=== PATIENT | female | born 1985 | race Hispanic/Latino ===

== ENCOUNTER 2020-09-05 23:00 | Observation (INO) | payer BC, OTHER, SELFPAY ==
[2020-09-06] MEDS ORDERED: CEFOXITIN SODIUM 1 GM/VIAL IVPB SCH (00:28)
[2020-09-06 00:37] VITALS: BMI 51.2
[2020-09-06] MEDS ORDERED: CEFOXITIN SODIUM 1 GM/VIAL ONE (01:05)
[2020-09-06] MEDS ORDERED: CEFOXITIN/SWI 1gm 1 GM/10 ML SYR ONE (01:05)
[2020-09-06] MEDS: Ringers Lactate 1,000 ML IV SCH ×3 (01:23→23:29)
[2020-09-06] MEDS: METRONIDAZOLE 500mg IVPB 500 MG/100 ML BAG IV SCH ×3 (01:27→17:01)
[2020-09-06] MEDS: CEFOXITIN/SWI 1gm 1 GM/10 ML SYR IVP SCH ×5 (01:27→23:29)
[2020-09-06] MEDS: ONDANSETRON 4 MG/2 ML VIAL IV PRN (01:28)
[2020-09-06] MEDS: HYDROMORPHONE HCL 1 MG/ML INJ IV PRN ×5 (01:29→21:10)
[2020-09-06] MEDS ORDERED: Ringers Lactate 1,000 ML IV ONE (07:31)
[2020-09-06] MEDS ORDERED: propofoL 200 MG/20 ML VIAL IV ONE (07:42)
[2020-09-06] MEDS ORDERED: FENTANYL CITR 100 MCG/2 ML ONE (07:42)
[2020-09-06] MEDS ORDERED: ROCURONIUM 50 MG/5 ML VIAL IV ONE (07:43)
[2020-09-06] MEDS ORDERED: LIDOCAINE 2% MPF 5 ML VIAL ONE (07:43)
[2020-09-06] MEDS ORDERED: GLYCOPYRROLATE 0.2 MG/ML SYR ONE (07:43)
[2020-09-06] MEDS ORDERED: dexAMETHasone 10 MG/ML VIAL ONE (08:05)
[2020-09-06] MEDS ORDERED: KETOROLAC 30 MG/ML INJ ONE (08:05)
[2020-09-06] MEDS ORDERED: ONDANSETRON 4 MG/2 ML VIAL ONE (08:05)
--- NOTE | 2020-09-06 08:18 | PREOPHP ---
Date of Admission: 09/06/2020 Chief Complaint: Abdominal pain. History Of Present Illness: The patient is a 35-year-old female, who had an acute onset of diffuse a bdominal pain localizing to the right lower quadrant associated with nausea, vomiting, and anorexia. No diarrhea or constipation. No blood in her stool. No dysuria or hematuria. No sore throat, runn y nose, cough, headaches, or dizziness. No chest pain. No fever or chills. She went to [facility]. She had a workup done there. She had acute appendicitis, I was notified and she was transferred here, a dmitted, started on IV antibiotics and she requires surgical intervention. Review of Systems: Otherwise unremarkable. Past Medical History: Negative. Past Surgical History: Negative. Allergies: NO ALLERGIES. Social History: Denies smoking or drinking use. Family History: Significant for heart disease. Physical Examination: Vital Signs: Stable, afebrile. General: Awake, alert, and oriented x3. Head and Neck: Cranial nerves 2 through 12 are grossly within normal limits. No neck masses. No JV D. Throat clear. Neck: Supple. Chest: Clear. Heart: S1, S2. Abdomen: Soft, nondistended. Positive bowel sounds. Positive Rovsing sign. Positive right lower q uadrant tenderness with rebound. No rigidity or guarding. Extremities: Adequately perfused. Nontender. Neuro: Nonfocal. Laboratory Data: CT scan reviewed. There is some acute appendicitis with enlarged lymph nodes and n o other significant findings of fatty liver. White count is 13,000. Assessment: Acute appendicitis. Plan: Admit, n.p.o., IV fluid, IV antibiotic, to the OR for laparoscopic appendectomy possible open. Patient understands the risks, benefits, and alternatives and agrees to procedure. /MODL Voice ID: [id number]
--- NOTE | 2020-09-06 08:32 | P.OP ---
Barista: Michael HUFF Preoperative diagnosis: Acute Appendicitis Postoperative diagnosis: same Primary procedure: Lap Appy Anesthesia: General Estimated blood loss: min Specimen: Appy Findings: as above Complications: None Transferred to: Recovery Room Condition: Good
[2020-09-06] MEDS ORDERED: NEOSTIGMINE 1 MG/ML -5 ML ONE (08:50)
--- NOTE | 2020-09-06 09:03 | OP ---
Date of Procedure: 09/06/2020 Surgeon: Neeraj Johns MD Plate Filler: DARIA Rivera. Preoperative Diagnosis: Acute appendicitis. Postoperative Diagnosis: Acute appendicitis with acute suppurative appendicitis. Procedure Performed: Laparoscopic appendectomy. Estimated Blood Loss: Minimal. Specimen: Appendix. Findings: As above. Anesthesia: General. Complications: None. The patient tolerated the procedure in stable condition, taken to Recovery in good general condition. Procedure In Detail: Patient was brought to the OR and placed in supine position and general anesthe bouchra begun. The patient was prepped and draped in the usual sterile fashion. Marcaine 0.5% was infilt rated locally. A 15-blade was used to make a 1 cm supraumbilical midline incision. Subcutaneous tis marleen was divided. Fascia was identified and divided. #1 Vicryl stay suture was placed. Peritoneal c avity was entered with sharp and blunt dissection. 12-mm trocar was placed into the peritoneal cavit y under direct vision. Pneumoperitoneum was established and then two 5-mm trocars were placed one in the suprapubic region and one in the left lower quadrant. Laparoscopy revealed acute suppurative ap pendicitis. Base of the appendix and mesoappendix were clearly identified and both divided with Endo -ROSEMARIE stapling device. There was bleeding noted from the appendiceal artery, which was grasped and va scular clips were placed to easily control the bleeding and then the appendix was retrieved through t he umbilicus via an EndoCatch bag. Right lower quadrant, right pericolic gutter and pelvis were thor oughly irrigated. Effluent was clear. No evidence of bleeding or bowel injury was appreciated. Sub sequently, all trocars were removed under direct vision. Stay sutures were tied to each other to jey pproximate the fascial defect. Subcutaneous wounds were irrigated. Bleeding was controlled with cau johana. 3-0 chromic was used for subcutaneous tissue and artem were used to close skin. Sterile addie ssing was applied. Patient was awakened and taken to Recovery in good general condition. /MODL Voice ID: [id number] Report ID: [id number]
[2020-09-06] MEDS ORDERED: INFLUENZA VACCINE (for 3y+) 0.5 ML DOSE IMVAC ONE (12:00)
[2020-09-06] MEDS ORDERED: ZOLPIDEM TARTRATE 5 MG TABLET PO ONE (23:17)
[2020-09-07] MEDS: HYDROMORPHONE HCL 1 MG/ML INJ IV PRN ×5 (00:30→20:16)
[2020-09-07] MEDS: METRONIDAZOLE 500mg IVPB 500 MG/100 ML BAG IV SCH ×3 (00:31→16:58)
[2020-09-07] MEDS: CEFOXITIN/SWI 1gm 1 GM/10 ML SYR IVP SCH ×3 (05:28→16:59)
[2020-09-07 06:13] LABS: Absolute Lymphocytes (CBC) 2.3 K/uL (0.7-4.9); Basophils % 0.1 % (0-1.3); Hematocrit 34.5 % (36.0-45.0); Lymphocytes % 14.1 % (15.3-44.8); MPV 7.5 fL (7.6-11.3); RBC Red Blood Cell Count 4.07 M/uL (3.86-4.86)
[2020-09-07] MEDS: Ringers Lactate 1,000 ML IV SCH ×2 (07:00→08:48)
[2020-09-07] MEDS ORDERED: PHENAZOPYRIDINE 100MG TAB PO PRN (08:51)
--- NOTE | 2020-09-07 09:55 | PN ---
Date of Progress Note: 09/07/2020 Subjective: The patient is awake, alert, tolerating her diet. Complaining of minimal pain, requirin g parenteral pain management at this time. Objective: Vital Signs: Stable. She is afebrile. Abdomen: Soft, nondistended, nontender. Extremities: Dressing is clean, dry, intact Laboratory Data: White count is 16,000 and hemoglobin is 11.5. Assessment: Status post lap appendectomy. Recommendations: We will continue IV antibiotics. We will check another CBC tomorrow. If improving on the white count and stable on the H and H, we will discharge the patient home in 24-48 hours. /MODL Voice ID: [id number] Report ID: [id number]
[2020-09-07] MEDS: ONDANSETRON 4 MG/2 ML VIAL IV PRN ×2 (12:13→20:16)
[2020-09-07] MEDS ORDERED: CODEINE 30MG/APAP 300MG TAB PO PRN (17:09)
[2020-09-07] MEDS ORDERED: ZOLPIDEM TARTRATE 5 MG TABLET PO ONE (21:00)
[2020-09-08] MEDS: METRONIDAZOLE 500mg IVPB 500 MG/100 ML BAG IV SCH ×3 (00:31→17:20)
[2020-09-08] MEDS: CEFOXITIN/SWI 1gm 1 GM/10 ML SYR IVP SCH ×4 (00:32→17:20)
[2020-09-08] MEDS: HYDROMORPHONE HCL 1 MG/ML INJ IV PRN ×3 (05:18→17:20)
[2020-09-08] MEDS: ONDANSETRON 4 MG/2 ML VIAL IV PRN ×3 (05:18→17:19)
[2020-09-08 05:38] LABS: Absolute Lymphocytes (CBC) 4.2 K/uL (0.7-4.9); Basophils % 0.3 % (0-1.3); Hematocrit 33.6 % (36.0-45.0); Lymphocytes % 31.6 % (15.3-44.8); MPV 7.5 fL (7.6-11.3); RBC Red Blood Cell Count 3.94 M/uL (3.86-4.86)
[2020-09-08] MEDS ORDERED: INFLUENZA VACCINE (for 3y+) 0.5 ML DOSE IMVAC ONE (14:00)
--- NOTE | 2020-09-08 18:38 | PN ---
Date of Progress Note: 09/08/2020 Subjective: The patient is awake, alert. No complaints. Objective: Vital Signs: Stable, afebrile. Abdomen: Benign, soft, nondistended, and nontender. Positive bowel sounds. Extremities: Dressing is clean, dry, and intact Laboratory Data: Shows white count still elevated at 13.1. Neutrophil percentage is improved. H an d H are stable at 11.1 and 33.6. Assessment: Status post lap appendectomy. Plan: We will monitor the H and H 1 more day and continue IV antibiotics for 1 more day and likely d ischarge tomorrow as she still has leukocytosis. Encourage ambulation, incentive spirometry. Clinic ally stable. /MODL Voice ID: [id number] Report ID: [id number]
[2020-09-08] MEDS ORDERED: ZOLPIDEM TARTRATE 5 MG TABLET PO PRN (21:33)
[2020-09-09] MEDS: HYDROMORPHONE HCL 1 MG/ML INJ IV PRN (00:48)
[2020-09-09] MEDS: ONDANSETRON 4 MG/2 ML VIAL IV PRN (00:48)
[2020-09-09] MEDS: CEFOXITIN/SWI 1gm 1 GM/10 ML SYR IVP SCH ×2 (00:49→05:27)
[2020-09-09] MEDS: METRONIDAZOLE 500mg IVPB 500 MG/100 ML BAG IV SCH ×2 (00:50→08:30)
[2020-09-09 05:32] LABS: Absolute Lymphocytes (CBC) 4.5 K/uL (0.7-4.9); Basophils % 1.3 % (0-1.3); Hematocrit 34.6 % (36.0-45.0); Lymphocytes % 39.2 % (15.3-44.8); MPV 7.6 fL (7.6-11.3); RBC Red Blood Cell Count 4.07 M/uL (3.86-4.86)
[2020-09-09 08:50] VITALS: O2SAT 97
[2020-09-09 13:06] VITALS: BP 132/80; TEMP 97.8
--- NOTE | 2020-09-09 15:36 | DS ---
Date of Discharge: 09/09/2020 Admitting Diagnosis: Acute appendicitis. Discharge Diagnosis: Acute appendicitis. Procedure Performed: Laparoscopic appendectomy. Hospital Course: The patient is a 35-year-old female, admitted with abdominal pain. Workup revealed acute appendicitis. Underwent a laparoscopic appendectomy on Tuesday and postoperatively she had l eukocytosis. She was treated with IV antibiotics. Leukocytosis has improved, almost completely norm alized. She is eating. She is tolerating diet. She is ambulating, pain controlled on p.o. pain med ications. She is afebrile. Therefore, the patient will be discharged to home. Disposition: Home. Condition: Stable. Discharge Instructions: Resume home medications and diet. Activity as tolerated. No heavy lifting. Remove outer dressing in 2 days. Shower. Keep wound clean and dry. Follow up in my office in 2 d ays. Call for appointment. Tylenol No.3 one tablet p.o. q.4 p.r.n. pain, Augmentin 875 p.o. b.i.d., and Diflucan 150 mg daily for yeast infection. /MODL Voice ID: [id number] Report ID: [id number]
== END 2020-09-09 11:40 | disposition home or self-care (01) ==
LOC: INTOOBSV 09-06 00:18 → 2ND 09-06 00:18 → OBSVTOIN 09-07 12:09 → INTOOBSV 09-07 12:09
PROVIDERS: ADMIT Surgery; ATTEND Surgery
PROC: 0DTJ4ZZ Resection of Appendix, Percutaneous Endoscopic Approach (ICD-10-PCS; principal; 2020-09-06 07:30)
DX: K35.80 Unspecified acute appendicitis (principal); E66.01 Morbid (severe) obesity due to excess calories
CPT/HCPCS: 85025 ×3; 36415 ×3; 83605; 88304; 94010 ×2; 44970; J2704; J3010; J1100; J1170 ×14; J2710; J7120 ×4; J0694; J2405 ×8

== ENCOUNTER 2021-01-21 08:16 | Observation (INO) | payer BC ==
[2021-01-20 14:35] LABS: Absolute Lymphocytes (CBC) 2.9 K/uL (0.7-4.9); Basophils % 0.9 % (0-1.3); Hematocrit 44.4 % (36.0-45.0); Lymphocytes % 37.7 % (15.3-44.8); MPV 8.7 fL (7.6-11.3); RBC Red Blood Cell Count 5.29 M/uL (3.86-4.86)
[2021-01-20 15:14] LABS: ALT/SGPT 27 U/L (12-78); AST/SGOT 18 U/L (15-37); Albumin 3.7 g/dL (3.4-5.0); Alkaline Phosphatase 84 U/L (45-117); BUN Blood Urea Nitrogen 9 mg/dL (7-18); Bicarbonate 28 mmol/L (21-32); Bilirubin Direct 0.1 mg/dL (0-0.2); Bilirubin Total 0.4 mg/dL (0.2-1.0); Glucose Level 82 mg/dL (74-106); Protein, Total 7.9 g/dL (6.4-8.2); Sodium Level 141 mmol/L (136-145)
[2021-01-20 15:15] LABS: Amylase 40 U/L (25-115)
[2021-01-21] MEDS ORDERED: CELECOXIB 100 MG CAPSULE PO ONE (08:40)
[2021-01-21] MEDS ORDERED: ACETAMINOPHEN 500 MG TAB PO ONE (08:40)
[2021-01-21] MEDS ORDERED: DIAZEPAM 5 MG TABLET PO ONE (08:40)
[2021-01-21] MEDS ORDERED: CELECOXIB 100 MG CAPSULE ONE (08:49)
[2021-01-21] MEDS ORDERED: DIAZEPAM 5 MG TABLET ONE (08:49)
[2021-01-21] MEDS ORDERED: Ringers Lactate 1,000 ML IV ONE ×2 (08:49→10:45)
[2021-01-21] MEDS ORDERED: ACETAMINOPHEN 500 MG TAB ONE (08:49)
[2021-01-21] MEDS ORDERED: CEFOXITIN/SWI 1gm 1 GM/10 ML SYR ONE (09:23)
[2021-01-21] MEDS ORDERED: dexAMETHasone 10 MG/ML VIAL ONE (09:40)
[2021-01-21] MEDS ORDERED: KETOROLAC 30 MG/ML INJ ONE (09:40)
[2021-01-21] MEDS ORDERED: propofoL 200 MG/20 ML VIAL IV ONE (09:40)
[2021-01-21] MEDS ORDERED: FENTANYL CITR 100 MCG/2 ML ONE ×2 (09:40→11:00)
[2021-01-21] MEDS ORDERED: MIDAZOLAM HCL 2 MG/2 ML INJ ONE (09:40)
[2021-01-21] MEDS ORDERED: ROCURONIUM 50 MG/5 ML VIAL IV ONE (09:40)
[2021-01-21] MEDS ORDERED: LIDOCAINE 1% MPF 30 ML VIAL ONE (09:41)
[2021-01-21] MEDS ORDERED: SODIUM CHLORIDE 0.9% 10ML INJ IV PRN (10:56)
[2021-01-21] MEDS ORDERED: ONDANSETRON 4 MG/2 ML VIAL IV PRN (10:56)
[2021-01-21] MEDS ORDERED: HYDROCODONE/APAP 5/325 MG TAB PO PRN ×2 (10:56→18:18)
[2021-01-21] MEDS ORDERED: LABETALOL 20 MG/4ML SYRINGE IV ONE (11:08)
--- NOTE | 2021-01-21 11:09 | P.BOP ---
Preoperative diagnosis: RUq abd pain, RLQ abd pain, acute cholecystitis acute appendicitis Postoperative diagnosis: same plus intrabdominal adhesions Primary procedure: 1. Laparoscopic cholecystecomy Secondary procedure: 2. Laparoscopic appendectomy Other procedure(s): 3. Lapatroscopic lysis of adhesions Leather Etcher: MATTHEW MARKS (Navya) Estimated blood loss: <20cc Specimen: gallbladder, remnant appendix Findings: see dictation Anesthesia: General Complications: None Transferred to: Recovery Room Condition: Good
[2021-01-21] MEDS ORDERED: GLYCOPYRROLATE 0.2 MG/ML SYR ONE (11:12)
[2021-01-21] MEDS ORDERED: NEOSTIGMINE 1 MG/ML -5 ML ONE (11:16)
[2021-01-21] MEDS: MEPERIDINE HCL 25 MG/ML SYR ONE ×4 (11:21→11:43)
[2021-01-21] MEDS ORDERED: PROMETHAZINE INJ 25 MG/ML AMP ONE (11:41)
[2021-01-21] MEDS: ONDANSETRON 4 MG/2 ML VIAL ONE ×2 (11:49→12:04)
[2021-01-21] MEDS ORDERED: CEFOXITIN 1 GM in NA CHLORIDE 0.9% 100 ML IVPB SCH (12:00)
[2021-01-21] MEDS: CEFOXITIN/SWI 1gm 1 GM/10 ML SYR IV SCH ×2 (12:15→17:00)
[2021-01-21] MEDS: MORPHINE 2 MG/ML SYR IV PRN ×2 (12:46→16:59)
[2021-01-21] MEDS: PANTOPRAZOLE 40 MG INJ IVP SCH (12:46)
[2021-01-21] MEDS: NA CHLORIDE 0.9% 1,000 ML IV SCH ×2 (12:47→23:00)
[2021-01-21 13:43] VITALS: BMI 48.6
[2021-01-21] MEDS ORDERED: INFLUENZA VACCINE (for 3y+) 0.5 ML DOSE IMVAC ONE (14:00)
--- NOTE | 2021-01-21 14:59 | OP ---
Date of Procedure: 01/21/2021 Surgeon: Esteban Cramer MD Sample Mounter: DARIA Tavares. Preoperative Diagnoses: Right upper quadrant abdominal pain, right lower quadrant abdominal pain, ac christina cholecystitis, symptomatic cholelithiasis, acute appendicitis. Postoperative Diagnoses: Right upper quadrant abdominal pain, right lower quadrant abdominal pain, a cute cholecystitis, symptomatic cholelithiasis, acute appendicitis plus intraabdominal adhesions. Procedures: 1.Laparoscopic cholecystectomy. 2.Laparoscopic appendectomy. 3.Laparoscopic lysis of adhesions. Specimen: Gallbladder and appendix. Findings: The patient has distended and inflamed gallbladder. The patient also has a random of the appendix as described on the CT scan, described at that moment as acute appendicitis. Anesthesia: General plus local. Indications: This is the case of a female, who comes to us with 2 problems. She has right upper mika drant pain postprandial, but also she has right lower quadrant pain. She had appendectomy done sever al months ago. Apparently, she is in the emergency with a lot of inflammation of that area after I d iscussed the case with the surgeon. The patient is coming back now with recurring abdominal pain, we nt to [place], got a CAT scan done, found to have acute appendicitis on the residual appendix. After p ros and cons were discussed, the patient decided to come to my office and get the 2 problems addresse d. She is still having right lower quadrant pain and still having right upper quadrant pain. We exp lained to her the benefits, alternatives, and risks of laparoscopic possible open cholecystectomy, di agnostic laparoscopy, possible open appendectomy with benefits, alternatives, and risks including, bu t not limited to infection, bleeding, damage to adjacent structures, anesthesia complication, choledo cholithiasis, bile leak, pancreatitis, NM, and even . She also understands this may not relieve any symptoms. She might need more than one surgical intervention. Concerning the area of the nader spicer, I discussed the case with the previous surgeon. I discussed case with the patient. I saw the C AT scans and they may still have a residual appendix there since the last case was done emergently wi th a lot of inflammation and some time that this is situation. Unfortunately, she developed inflamma tion over that area of that remnant of the appendix and most likely needs to be removed. There was a lso aspect and differential diagnosis that were discussed with the patient. She understood and wants the appendix also removed. She signed a consent. Procedure In Detail: The patient was brought to the operating room, placed in supine position. Anes thesia was done without complication. Abdominal area was prepped and draped in a sterile fashion. L ocal anesthesia was applied over the infraumbilical region. Incision was carried down to fascia, whi ch was opened under direct vision. Peritoneum was encountered, opened under direct vision. Vicryl # 1 placed inside the fascia. Harshal trocar was carefully introduced. Pneumoperitoneum was obtained. I decided to address the issue of the gallbladder first, so I put 3 trocars in the right upper quadr ant under direct visualization. This allowed me to visualize the area of the small bowel and liver a nd stomach and other than the abnormal gallbladder and also some what looked like at the end of the a ppendix, the rest of the abdomen seems to be negative. So, we might have to that appendix removed an d we are going to remove the gallbladder too. We are going to remove the gallbladder first. The gal lbladder was distended, so I proceeded to decompress the area with Endo needle under direct visualiza tion. Then, after that, I put a grasper in the fundus of the gallbladder and another grasper in the infundibulum retracting the gallbladder in the inferolateral fashion exposing the triangle of Calot a nd obtaining critical view. There were several adhesions in that area that needed to be addressed fi rst. That was done with the help of LigaSure and help also of a scissors. The gallbladder was retra cted in the inferolateral fashion exposing the triangle of Calot and obtaining critical view. Cystic duct and cystic artery were clearly isolated, freed circumferentially, and a connection between thos e and the gallbladder were clearly identified. I proceeded to ligate those by using at least 3 clips proximal, 1 clip distal, ligation in the middle. Same was done with the cystic artery. No bile ty k. No bleeding. The gallbladder was removed from liver using Bovie cauterizer and removed from abdo ottoniel cavity using EndoCatch through the umbilical incision. The area was inspected once again. No bile leak. No bleeding. Gallbladder fossa was intact. She has a large body habitus, she is morbidl y obese, so I cannot use 3 trocars properly to address the gallbladder. So, I put 2 more 5 mm trocar s after placing the patient then in Trendelenburg position with right side up. We put a trocar on th e left lower quadrant and also suprapubic area under direct visualization. This allowed me to visual ize the area of the right upper quadrant and indeed what the CAT scan shows, there was a remnant appe ndix in that region. We were able to create a window in the base of the appendix, transected that wi th an Endo ROSEMARIE 45 mm 3.5 and the mesoappendix was removed with scar tissue over that area with the Li gaSure. We have to get the adhesions in the right lower quadrant. Once again, we have to assume tho se are coming from the previous inflammatory process. The adhesions were removed. No enterotomies w ere done. Appendix was removed from abdominal cavity using EndoCatch through the umbilical incision. The area was inspected once again. The area of the lysis of adhesions was inspected, no bleeding. The area of the cecum was inspected. No bowel leak. No bleeding. The area of the right upper quad rant was inspected once again, no bile leak and no bleeding. At that moment, I proceeded to remove t he trocars under direct vision, deflated pneumoperitoneum, closed the fascia with #1 Vicryl. Irrigat ed subcutaneous tissue, closed that with 3-0 chromic, and skin in a subcuticular fashion with 3-0 chr omic and Steri-Strips on top. The patient tolerated the procedure well. The patient on her way to [facility] in stable condition. This patient previously discussed the case with me the possibility of s taying overnight due to multiple surgeries at the same time. I do agree with her. I am going to off er her to stay overnight for observation. She has gallbladder out. She has adhesions. She has appe ndix removed and that is a recurrent problem there. So, she is going to need some pain control and m ost likely she is going to develop an ileus. HM/MODL Voice ID: [id number] Report ID: [id number]
[2021-01-21] MEDS ORDERED: MORPHINE 2 MG/ML SYR IV PRN (18:16)
[2021-01-21] MEDS: MORPHINE 4 MG/ML SYR IV PRN (19:55)
[2021-01-21] MEDS: ONDANSETRON 4 MG/2 ML VIAL IV PRN (20:04)
[2021-01-21] MEDS ORDERED: MELATONIN 5 MG TABLET PO PRN (22:55)
[2021-01-22] MEDS: CEFOXITIN/SWI 1gm 1 GM/10 ML SYR IV SCH (00:02)
[2021-01-22] MEDS: MORPHINE 4 MG/ML SYR IV PRN ×2 (02:00→08:44)
[2021-01-22 03:41] VITALS: O2SAT 95
[2021-01-22 04:37] LABS: Absolute Lymphocytes (CBC) 1.7 K/uL (0.7-4.9); Basophils % 0.7 % (0-1.3); Hematocrit 38.3 % (36.0-45.0); Lymphocytes % 17.4 % (15.3-44.8); MPV 8.4 fL (7.6-11.3); RBC Red Blood Cell Count 4.55 M/uL (3.86-4.86)
[2021-01-22 04:56] LABS: BUN Blood Urea Nitrogen 6 mg/dL (7-18); Bicarbonate 26 mmol/L (21-32); Glucose Level 97 mg/dL (74-106); Potassium 4.5 mmol/L (3.5-5.1); Sodium Level 143 mmol/L (136-145)
[2021-01-22] MEDS: NA CHLORIDE 0.9% 1,000 ML IV SCH (07:00)
[2021-01-22] MEDS: PANTOPRAZOLE 40 MG INJ IVP SCH (08:43)
[2021-01-22] MEDS: ONDANSETRON 4 MG/2 ML VIAL IV PRN (08:44)
[2021-01-22 09:06] VITALS: BP 143/80; TEMP 98
== END 2021-01-22 11:15 | disposition home or self-care (01) ==
LOC: OR 08:16 → 2ND 11:58
PROVIDERS: ADMIT Surgery; ATTEND Surgery
PROC: 0DTJ4ZZ Resection of Appendix, Percutaneous Endoscopic Approach (ICD-10-PCS; 2021-01-21)
PROC: 0FT44ZZ Resection of Gallbladder, Percutaneous Endoscopic Approach (ICD-10-PCS; principal; 2021-01-21 10:30)
DX: K80.00 Calculus of gallbladder with acute cholecystitis without obstruction (principal); K35.80 Unspecified acute appendicitis; K66.0 Peritoneal adhesions (postprocedural) (postinfection); Z20.822 Contact with and (suspected) exposure to COVID-19
CPT/HCPCS: 47562; 44979; 85025 ×2; 80048 ×2; 36415 ×2; 82150; 84703; 80076; 88304; 94010; U0003; J2704; J2550; C9113 ×2; J2250; J3010 ×2; J1100; J2270 ×2; J2175 ×2; J2710; J7120 ×2; J7030 ×2; J2405 ×5; G0378